=== PATIENT | male | born 1975 | race Caucasian/White ===

== ENCOUNTER 2021-04-03 13:17 | Outpatient (CLI) | payer OTHER | END 2021-04-03 13:18 | disposition home or self-care (01) | LOC: BICMRI 13:17 | PROVIDERS: ATTEND Orthopaedic Surgery | DX: M23.92 Unspecified internal derangement of left knee (principal) ==

== ENCOUNTER 2023-10-22 11:23 | Outpatient (CLI) | payer BC | END 2023-10-22 11:24 | disposition home or self-care (01) | LOC: SCSRAD 11:23 | PROVIDERS: ATTEND Chiropractor | DX: M54.50 Low back pain, unspecified (principal); M47.816 Spondylosis without myelopathy or radiculopathy, lumbar region | CPT/HCPCS: 72100 ==

== ENCOUNTER 2024-12-10 10:36 | Outpatient (CLI) | payer BC | END 2024-12-10 10:37 | disposition home or self-care (01) | LOC: BICRAD 10:36 | PROVIDERS: ATTEND Podiatrist | DX: M79.672 Pain in left foot (principal); M19.072 Primary osteoarthritis, left ankle and foot; M77.32 Calcaneal spur, left foot ==